=== PATIENT | female | born 1990 | race Caucasian/White ===

== ENCOUNTER → 2022-01-12 | Outpatient (CLI) | payer MEDICAID ==
[~2022-01-12] MED LIST: CEFD300C3 PO; CPR500T PO; METR500T PO; NAPR-243 PO; TRM50T PO
--- NOTE | 2022-01-12 14:07 | Diagnostic Imaging Report ---
INDICATION: Routine care. TECHNIQUE: Multiple real-time grayscale images were obtained over the gravid uterus. COMPARISON: None. FINDINGS: There is a single live intrauterine gestation in cephalic presentation. The cervix measures 5.2 cm in length. There is no funneling or endocervical fluid. The placenta is posterior without evidence of previa. The cerebellum and cisterna magna are seen. The lateral ventricle is seen. The stomach is seen. A four-chamber heart is seen. The kidneys are seen. The cord insertion is seen. The bladder is seen. A three-vessel cord is demonstrated with two umbilical arteries. The profile is seen. The upper and lower spine are seen. Bilateral lower extremities are partially seen. The left ventricular outflow tract is seen. The right ventricular outflow tract is seen. The amniotic fluid index measures 13.5 cm. The heart rate measures 149 BPM. Biometrical measurements are as follows: Biparietal 4.71 cm, age 20 weeks 2 days. Head circumference 17.64 cm, age 20 weeks 1 days. Abdominal circumference 14.76 cm, age 20 weeks 1 days. Femur length 3.45 cm, age 21 weeks 0 days. Sonographic estimate age: 20 weeks 3 days. Sonographic estimated date of delivery: 05/29/2022. Estimated Weight: 350 gm (+/- 51 gm). LMP percentile: 88%. heart rate: 149 beats per minute. number: 1 of 1. IMPRESSION: 1. Single live intrauterine gestation measuring at 20 weeks and 3 days which is within range of the clinical dates. 2. Anatomic survey. No abnormalities are seen. Dictated by: Dictated on workstation # [id number]
== END ==
LOC: RAD 11:51
PROVIDERS: ATTEND Obstetrics & Gynecology
DX: Z34.02 Encounter for supervision of normal first pregnancy, second trimester (principal); Z3A.20 20 weeks gestation of pregnancy
CPT/HCPCS: 76805

== ENCOUNTER 2022-05-18 12:41 | Outpatient (CLI) | payer BC, MEDICAID ==
[~2022-05-18] VITALS: Ht 157.5 cm; Wt 85.1 kg
[2022-05-18 13:00] VITALS: BP 134/89
[2022-05-18 13:08] LABS: BILIRUBIN,URINE NEGATIVE (NEGATIVE); CLARITY,URINE CLEAR; COLOR,URINE YELLOW; GLUCOSE, URINE (UA) NEGATIVE (NEGATIVE); KETONES,URINE NEGATIVE (NEGATIVE); LEUKOCYTE ESTERASE ,URINE NEGATIVE (NEGATIVE); NITRITE,URINE NEGATIVE (NEGATIVE); PROTEIN,URINE TRACE (NEGATIVE)
[2022-05-18 13:15] VITALS: BP 146/97
[2022-05-18 13:19] LABS: BACTERIA,URINE MODERATE /HPF; RBC,URINE RARE /HPF; SQUAMOUS EPITHELIAL CELL,UR 0-2 /HPF; WBC,URINE 0-2 /HPF
[2022-05-18 13:20] LABS: AMORPHOUS SEDIMENT,UR FEW AMOR PHOSPHATE /LPF; HYALINE CASTS, URINE RARE /LPF
[2022-05-18] MEDS ORDERED: PNV-9 PO (13:20)
[2022-05-18] MEDS ORDERED: DOXY25TA56 PO (13:20)
[2022-05-18] MEDS ORDERED: B6/F1TAB PO (13:20)
[2022-05-18 13:30] VITALS: BP 132/81
[2022-05-18 13:45] VITALS: BP 130/79
--- NOTE | 2022-05-21 08:26 | Physician Query-Final Dx ---
Clinic Account Progress/Dx Physician Query: Please give diagnosis Please include # weeks gestation Date of Service May 18, 2022 at 12:41 ,FebMay 21, 2022 08:25
== END 2022-05-18 13:59 | disposition home or self-care (01) ==
LOC: WSo 12:41 → LDRP 12:41 → WSo 13:59
PROVIDERS: ATTEND Obstetrics & Gynecology
DX: O42.92 Full-term premature rupture of membranes, unspecified as to length of time between rupture and onset of labor (principal); Z3A.38 38 weeks gestation of pregnancy
CPT/HCPCS: 81000; 87088; 99213

== ENCOUNTER 2022-05-18 21:41 | Inpatient (IN) | payer BC, MEDICAID ==
[~2022-05-18] VITALS: Ht 157.5 cm; Wt 85.1 kg
[2022-05-18] VITALS (7 sets, daily range): BP systolic 130–142; BP diastolic 75–86
[~2022-05-18 21:41] MED LIST changes: +B6/F1TAB PO; +DOXY25TA56 PO; +PNV-9 PO
[2022-05-18 22:06] LABS: BILIRUBIN,URINE NEGATIVE (NEGATIVE); CLARITY,URINE CLEAR; COLOR,URINE YELLOW; GLUCOSE, URINE (UA) NEGATIVE (NEGATIVE); KETONES,URINE NEGATIVE (NEGATIVE); LEUKOCYTE ESTERASE ,URINE NEGATIVE (NEGATIVE); NITRITE,URINE NEGATIVE (NEGATIVE); PROTEIN,URINE TRACE (NEGATIVE)
[2022-05-18 22:30] LABS: BACTERIA,URINE MODERATE /HPF; RBC,URINE RARE /HPF
[2022-05-18 22:32] LABS: YEAST,URINE RARE /HPF
[2022-05-18] MEDS ORDERED: D5 LR IV SOLUTION 1,000 ML IV ONE (22:50)
[2022-05-18] MEDS ORDERED: BUTORPHANOL INJ 2 MG/ML (STADOL) VIAL IV PRN (23:00)
[2022-05-18] MEDS ORDERED: OXYTOCIN PRE-MIX DRIP 500 ML IV SCH (23:00)
[2022-05-18] MEDS ORDERED: MINERAL OIL 30 ML UDC TOP PRN (23:00)
[2022-05-18] MEDS: D5 LR IV SOLUTION 1,000 ML IV SCH (23:06)
[2022-05-18 23:12] LABS: BASOPHILS # (AUTO) 0.1 10^3/uL (0.0-0.1); BASOPHILS % (AUTO) 0 % (0-10); EOSINOPHILS # (AUTO) 0.2 10^3/uL (0.0-0.3); EOSINOPHILS % (AUTO) 1 % (0-10); HEMATOCRIT 39 % (35-52); HEMOGLOBIN 13.4 g/dL (11.5-16.0); LYMPHOCYTES % (AUTO) 15 % (12-44); MEAN CORPUSCULAR HEMOGLOBIN 31 pg (25-34); MEAN CORPUSCULAR HGB CONC 35 g/dL (32-36); MEAN CORPUSCULAR VOLUME 88 fL (80-99); MEAN PLATELET VOLUME 10.6 fL (9.0-12.2); MONOCYTES # (AUTO) 1.6 10^3/uL (0.0-1.0); MONOCYTES % (AUTO) 8 % (0-12); NEUTROPHILS # (AUTO) 14.2 10^3/uL (1.8-7.8); NEUTROPHILS % (AUTO) 73 % (42-75); PLATELET COUNT 268 10^3/uL (130-400); WHITE BLOOD COUNT 19.4 10^3/uL (4.3-11.0)
[2022-05-19] VITALS (136 sets, daily range): BP systolic 109–161; BP diastolic 55–97
[2022-05-19] MEDS ORDERED: fentaNYL 2 mcg/ml BUPIVA 0.125 100 ML ONE (01:18)
[2022-05-19] MEDS ORDERED: LACTATED RINGERS 1,000 ML IV ONE (01:30)
[2022-05-19] MEDS ORDERED: fentaNYL INJ 100 MCG/2 ML AMP ONE ×3 (01:47→21:49)
[2022-05-19] MEDS ORDERED: LIDOCAINE PF 2% 5 ML (XYLOCAINE) VIAL ONE ×3 (01:47→22:11)
[2022-05-19] MEDS: fentaNYL 2 mcg/ml BUPIVA 0.125 100 ML EPI SCH ×3 (02:12→16:26)
[2022-05-19] MEDS ORDERED: ONDANSETRON 4 MG/2 ML (SDV) Z0FRAN IV PRN (02:30)
[2022-05-19] MEDS ORDERED: NALOXONE 0.4 MG/ML 1 ML (NARCAN) VIAL IV PRN ×3 (02:30→23:00)
[2022-05-19] MEDS ORDERED: LACTATED RINGERS 1,000 ML IV SCH (02:30)
[2022-05-19] MEDS ORDERED: diphenhydrAMINE 50 MG/ML INJ (BENADRYL) IV PRN (02:30)
[2022-05-19] MEDS ORDERED: METOCLOPRAMIDE INJ 10 MG/2 ML (REGLAN) IV PRN (02:30)
[2022-05-19] MEDS: CATHETER FLUSH 10 ML SYR IV SCH ×3 (06:38→22:00)
[2022-05-19] MEDS: D5 LR IV SOLUTION 1,000 ML IV SCH ×3 (06:56→23:00)
--- NOTE | 2022-05-19 08:24 | OB Triage Report ---
Standard Progress Note Progress Notes/Assess & Plan Date Seen by a Provider: May 18, 2022 Time Seen by a Provider: 13:00 Expected Date of Delivery: Jun 01, 2022 Gestational Age in Weeks: 38 Gestational Age in Days: 0 LMP/ANA MARÍA Comment: See above Progress/Assessment & Plan @ 38 0/7 weeks presented to L&D 05/18/22 with concerns about possible SROM, no evidence of such per RN evaluation, hx more consistent with leakage of urine upon standing. Cx 1-2 cm per L&D RN, Category I FHR tracing with irregular and mild contractions. VSS. Patient released to home with routine labor precautions. Final Diagnosis 38 weeks No SROM Not in Labor RUIZ GREWAL DO May 19, 2022 08:24
--- NOTE | 2022-05-19 08:30 | History & Physical-OB ---
OB - Chief Complaint & HPI Date/Time Date of Admission: Date of Admission: May 18, 2022 at 22:35 Date seen by a Provider: May 19, 2022 Time Seen by a Provider: 07:50 Chief Complaint/History OB-Reason for Admission/Chief: Rupture of Membranes Hx : 1 Hx Para: 0 Expected Date of Delivery: Jun 01, 2022 Gestational Age in Weeks: 38 Gestational Age in Days: 1 Other reason for admission: 38 weeks SROM Labor History of Labs LABS: MBT B POS PNAS NEG VDRL NR HBSAG NR HIV NR GC/CT NEG X 2 RUBELLA IMMUNE TSH NORMAL HCV NR MSAFP/MULTIPLE MARKER NEG 1 HR GTT 99 GBS NEG Other EDC 06/01/22 @ 38 03/03 weeks admitted late last night with laboratory confirmed SROM. Patient reports SROM @ 1930 hours, noted to be grover mild contractions q2-6 minutes spontaneously, with cx 2 cm dilated per RN exam. Admitted for delivery. PNC: uncomplicated PMH: Neg PSH: Neg SHx: Negative for smoking/ETOH/Rx/STI/Genital HSV Meds: PNV Allergy: Diflucan...swelling and rash ROS Negative for all major systems (CV, Resp, GI/, Skin, Endocrin, NM/MS) Allergies and Home Medications Allergies Coded Allergies: fluconazole (Unverified Allergy, Unknown, "SWELL UP AND GET ALL ITCHY", 01/12/22) Patient Home Medication List Home Medication List Reviewed: Yes B6/FA/B12/Co Q10/Herb No.225 (Healthy Heart Complex Tablet) 100-0.8MG Tablet, 1 EACH PO, (Reported) Entered as Reported by: AKILAH CASTANEDA on 05/18/221319 Last Action: Reviewed Doxylamine Succinate (Unisom) 25 Mg Tablet, 25 MG PO, (Reported) Entered as Reported by: AKILAH CASTANEDA on 05/18/221319 Last Action: Reviewed Pnv 119/Iron Fum/Folic Acid ( 19 Tablet) 29 Mg Iron-1 Mg Tablet, 1 EACH PO, (Reported) Entered as Reported by: AKILAH CASTANEDA on 05/18/221319 Last Action: Reviewed OB - History Hx of Present Care: Yes Obstetrical Complications: None Medical Complications: None Patient Past Medical History See above Social History/Family History 2nd Hand Smoke Exposure: No Immunizations Influenza Vaccine Up-to-Date: No; Not Current OB - Admission Exam Physical Exam Vitals: Vital Signs 05/19/22 05/19/22 05/19/22 06:15 06:45 07:00 Temp 36.3 Pulse 85 Resp 18 B/P (MAP) 127/65 (85) Pulse Ox 99 O2 Delivery Room Air HEENT: Moist Membranes Heart: Rhythm Normal Lungs: Clear Abdomen: Gravid Extremities: Normal Reflexes: Normal Cervical Dilatation: 4cm Effacement: 100% Station: -3 Membranes: Ruptured Amniotic Fluid: Clear Heart Rate: 130's Accelerations: Accelerations Present Decelerations: No Decelerations Short Term Variability: Present Half-Way Variability: Average (6-25) Contractions on Admission: < 5 Minutes Apart Date/Time Contractions Began;: 05/18/22 @ 1930 Frequency of Contractions: q2-6 minutes Intensity: Mild Labs Laboratory Tests Test 05/18/22 21:50 05/18/22 22:05 05/18/22 22:55 Range/Units Urine Color YELLOW Urine Clarity CLEAR Urine pH 6.0 5-9 Urine Specific [place] 1.025 H 1.016-1.022 Urine Protein TRACE H NEGATIVE Urine Glucose (UA) NEGATIVE NEGATIVE Urine Ketones NEGATIVE NEGATIVE Urine Nitrite NEGATIVE NEGATIVE Urine Bilirubin NEGATIVE NEGATIVE Urine Urobilinogen 0.2 < = 1.0 MG/DL Urine Leukocyte Esterase NEGATIVE NEGATIVE Urine RBC (Auto) TRACE-I H NEGATIVE Urine RBC RARE /HPF Urine WBC 2-5 /HPF Urine Squamous Epithelial Cells 10-25 H /HPF Urine Crystals NONE /LPF Urine Bacteria MODERATE H /HPF Urine Casts NONE /LPF Urine Mucus MODERATE H /LPF Urine Yeast RARE /HPF Urine Culture Indicated YES Membranes Rupture POSITIVE White Blood Count 19.4 H 4.3-11.0 10^3/uL Red Blood Count 4.37 3.80-5.11 10^6/uL Hemoglobin 13.4 11.5-16.0 g/dL Hematocrit 39 35-52 % Mean Corpuscular Volume 88 80-99 fL Mean Corpuscular Hemoglobin 31 25-34 pg Mean Corpuscular Hemoglobin Concent 35 32-36 g/dL Red Cell Distribution Width 12.7 10.0-14.5 % Platelet Count 268 130-400 10^3/uL Mean Platelet Volume 10.6 9.0-12.2 fL Immature Granulocyte % (Auto) 2 % Neutrophils (%) (Auto) 73 42-75 % Lymphocytes (%) (Auto) 15 12-44 % Monocytes (%) (Auto) 8 0-12 % Eosinophils (%) (Auto) 1 0-10 % Basophils (%) (Auto) 0 0-10 % Neutrophils # (Auto) 14.2 H 1.8-7.8 10^3/uL Lymphocytes # (Auto) 3.0 1.0-4.0 10^3/uL Monocytes # (Auto) 1.6 H 0.0-1.0 10^3/uL Eosinophils # (Auto) 0.2 0.0-0.3 10^3/uL Basophils # (Auto) 0.1 0.0-0.1 10^3/uL Immature Granulocyte # (Auto) 0.3 H 0.0-0.1 10^3/uL OB - Assessment/Plan/Diagnosis Assessment Assessment: rupture of membranes Admission Dx 38 weeks SROM (spontaneous rupture of membranes) Labor, early Admission Status: Inpatient Order (span 2 midnights) Reason for Inpatient Admission: 38 weeks SROM (spontaneous rupture of membranes) labor, early Plan Plan: Other (Pitocin augmentation, epidural at patient request) Other Plan As above. GBS negative RUIZ GREWAL DO May 19, 2022 08:30
--- NOTE | 2022-05-19 13:14 | Labor Progress Note ---
Labor Progress Note Labor Progress Note Date Seen by Provider: May 19, 2022 Time Seen by Provider: 13:00 Subjective: Pt denies complaints. Functional epidural and elizalde. Category I FHR tracing with baseline 130 bpm, moderate variability, +accels, no decels, contractions on 24 mIU Pitocin q2-3 minutes. Measuring less than <180 MVUs in part due to difficulties zeroing IUPC, but patient continues to make cervical change. Objective: (Can we insert 24 hour vitals here?) Cervical exam: /-2 (1300 hours by my exam) Assessment/Plan: Sue Soto is a (31 /Para 1 / 0,Gestational Age (wks)38 1/7 weeks undergoing augmentation of labor and now in active phase as of 1300 hours by my exam /2. Continue present care. Will re-check cervix in 4 hours, sooner prn. Patient understands condition and no questions voiced at this time. continue present care. Vitals - Labs Vital Signs - I&O Vital Signs Date Time Temp Pulse Resp B/P (MAP) Pulse Ox O2 Delivery O2 Flow Rate FiO2 05/19/22 07:00 18 Room Air 05/19/22 06:45 85 18 127/65 (85) Room Air 05/19/22 06:30 93 18 134/64 (87) Room Air 05/19/22 06:15 36.3 92 18 134/76 (95) 99 Room Air 05/19/22 06:00 99 18 137/84 (101) 99 Room Air 05/19/22 05:45 101 18 135/63 (87) 99 Room Air 05/19/22 05:40 102 18 128/73 (91) 99 Room Air 05/19/22 05:35 88 18 113/56 (75) 99 Room Air 05/19/22 05:30 93 18 120/59 (79) 99 Room Air 05/19/22 05:25 88 18 116/59 (78) 98 Room Air 05/19/22 05:20 87 18 126/60 (82) 98 Room Air 05/19/22 05:15 91 18 125/71 (89) 98 Room Air 05/19/22 05:00 85 18 110/55 (73) 98 Room Air 05/19/22 04:45 84 18 119/70 (86) 99 Room Air 05/19/22 04:30 73 18 129/75 (93) 97 Room Air 05/19/22 04:15 78 18 127/75 (92) 98 Room Air 05/19/22 04:00 83 18 123/67 (85) 97 Room Air 05/19/22 03:45 36.6 86 18 129/73 (91) 98 Room Air 05/19/22 03:30 88 18 123/65 (84) 97 Room Air 05/19/22 03:15 81 18 126/69 (88) 98 Room Air 05/19/22 03:00 78 18 125/65 (85) 98 Room Air 05/19/22 02:55 86 18 124/65 (84) 99 Room Air 05/19/22 02:50 87 18 130/72 (91) 97 Room Air 05/19/22 02:45 85 18 128/72 (90) 99 Room Air 05/19/22 02:40 90 18 131/71 (91) 98 Room Air 05/19/22 02:35 80 18 131/73 (92) 97 Room Air 05/19/22 02:30 90 18 128/63 (84) 97 Room Air 05/19/22 02:25 90 18 131/64 (86) 97 Room Air 05/19/22 02:20 91 18 137/76 (96) 97 Room Air 05/19/22 02:15 90 18 142/72 (95) 97 Room Air 05/19/22 02:10 82 18 136/75 (95) 99 Room Air 05/19/22 02:05 97 18 144/87 (106) 100 Room Air 05/19/22 01:59 99 18 153/85 (107) 99 Room Air 05/19/22 01:55 112 18 160/91 (114) 99 Room Air 05/19/22 01:45 88 18 135/76 (95) Room Air 05/19/22 01:30 106 18 135/68 (90) Room Air 05/19/22 01:15 96 18 128/74 (92) Room Air 05/19/22 01:00 88 18 129/68 (88) Room Air 05/19/22 00:45 105 18 141/88 (105) Room Air 05/19/22 00:30 101 18 125/83 (97) Room Air 05/19/22 00:15 36.4 93 18 136/79 (98) Room Air 05/19/22 00:00 97 18 131/82 (98) Room Air 05/18/22 23:45 101 18 133/80 (97) Room Air 05/18/22 23:40 99 18 133/79 (97) Room Air 05/18/22 23:25 93 18 132/76 (94) Room Air 05/18/22 23:10 97 18 136/80 (98) Room Air 05/18/22 22:21 100 18 130/77 (94) Room Air 05/18/22 22:11 95 18 130/75 (93) Room Air 05/18/22 22:01 36.7 109 18 142/86 (104) 100 Room Air 05/18/22 22:01 36.7 109 18 100 Room Air I & O 05/19/22 07:00 Intake Total 1000 ml Balance 1000 ml Labs Laboratory Tests 05/18/22 21:50: Urine Color YELLOW, Urine Clarity CLEAR, Urine pH 6.0, Urine Specific [place] 1.025H, Urine Protein TRACEH, Urine Glucose (UA) NEGATIVE, Urine Ketones NEGATIVE, Urine Nitrite NEGATIVE, Urine Bilirubin NEGATIVE, Urine Urobilinogen 0.2, Urine Leukocyte Esterase NEGATIVE, Urine RBC (Auto) TRACE-IH, Urine RBC RA RE, Urine WBC 2-5, Urine Squamous Epithelial Cells 10-25H, Urine Crystals NONE, Urine Bacteria MODERATEH, Urine Casts NONE, Urine Mucus MODERATEH, Urine Yeast RARE, Urine Culture Indicated YES 05/18/22 22:05: Membranes Rupture POSITIVE 05/18/22 22:55: White Blood Count 19.4H, Red Blood Count 4.37, Hemoglobin 13.4, Hematocrit 39, Mean Corpuscular Volume 88, Mean Corpuscular Hemoglobin 31, Mean Corpuscular Hemoglobin Concent 35, Red Cell Distribution Width 12.7, Platelet Count 268, Mean Platelet Volume 10.6, Immature Granulocyte % (Auto) 2, Neutrophils (%) (Auto) 73, Lymphocytes (%) (Auto) 15, Monocytes (%) (Auto) 8, Eosinophils (%) (Auto) 1, Basophils (%) (Auto) 0, Neutrophils # (Auto) 14.2H, Lymphocytes # (Auto) 3.0, Monocytes # (Auto) 1.6H, Eosinophils # (Auto) 0.2, Basophils # (Auto) 0.1, Immature Granulocyte # (Auto) 0.3H RUIZ GREWAL DO May 19, 2022 13:14
[2022-05-19] MEDS ORDERED: ceFAZolin INJECTION 2,000 MG ONE (20:36)
[2022-05-19] MEDS ORDERED: AZITHROMYCIN INJECTION 500 MG/5 ML VIAL ONE (20:36)
[2022-05-19] MEDS ORDERED: NS (IVPB) 50 ML ONE (20:36)
[2022-05-19] MEDS ORDERED: CITRIC ACID/SOB CIT (BICITRA) 30 ML UDC ONE (20:36)
[2022-05-19] MEDS ORDERED: FAMOTIDINE 20MG/2ML IV (PEPCID) ONE (20:36)
[2022-05-19] MEDS ORDERED: NS (IVPB) 250 ML ONE (20:43)
[2022-05-19] MEDS ORDERED: ceFAZolin INJECTION 2,000 MG in NS (IVPB) 50 ML IV ONE (20:45)
[2022-05-19] MEDS ORDERED: AZITHROMYCIN INJECTION 500 MG in NS (IVPB) 250 ML IV ONE (20:45)
[2022-05-19] MEDS ORDERED: CITRIC ACID/SOB CIT (BICITRA) 30 ML UDC PO ONE (20:45)
[2022-05-19] MEDS ORDERED: METOCLOPRAMIDE INJ 10 MG/2 ML (REGLAN) IV ONE (20:45)
[2022-05-19] MEDS ORDERED: LACTATED RINGERS 1,000 ML IV PRN (20:45)
[2022-05-19] MEDS ORDERED: FAMOTIDINE 20MG/2ML IV (PEPCID) IV ONE (20:45)
[2022-05-19] MEDS: LACTATED RINGERS 1,000 ML IV PRN ×2 (20:55→21:35)
[2022-05-19] MEDS ORDERED: KETAMINE 50 MG/5 ML SYRINGE ONE (21:45)
[2022-05-19] MEDS ORDERED: MIDAZOLAM 2 MG/2 ML (VERSED) VIAL ONE (21:54)
[2022-05-19] MEDS ORDERED: METHYLERGONOVINE 0.2 MG/ML (METHERGINE) AMP ONE (22:01)
[2022-05-19] MEDS ORDERED: ONDANSETRON 4 MG/2 ML (SDV) Z0FRAN ONE (22:11)
[2022-05-19] MEDS ORDERED: BUPIVACAINE 0.5% 30 ML (SENSORCAINE) VIAL ONE (22:11)
[2022-05-19] MEDS ORDERED: OXYTOCIN PRE-MIX DRIP 500 ML IV ONE (22:29)
[2022-05-19] MEDS ORDERED: proPOfol 200 MG/20 ML (DIPRIVAN) VIAL IV ONE (22:30)
[2022-05-19] MEDS: KETOROLAC 30 MG/ML VIAL IV SCH (22:43)
[2022-05-19] MEDS ORDERED: KETOROLAC 30 MG/ML VIAL ONE (22:46)
[2022-05-19] MEDS ORDERED: OXYTOCIN PRE-MIX DRIP 500 ML IV SCH (23:00)
[2022-05-19] MEDS ORDERED: oxyCODONE/APAP 5/325MG (PERCOCET 5) TABLET PO PRN (23:00)
[2022-05-19] MEDS ORDERED: ONDANSETRON 4 MG/2 ML (SDV) Z0FRAN IVP PRN (23:00)
--- NOTE | 2022-05-19 23:20 | OB/GYN Operative Report ---
Operative Report Date of Procedure:May 19, 2022 Preoperative Diagnosis: 38 1/7 weeks, Failure to Progress in Labor at 8 cm Postoperative Diagnosis: SAME Name of the Procedure: Section Surgeon: Ruiz Rodriguez D.O. Project Management It Specialist Surgeon: Kana Anesthesia:Epidural Indications for Procedure: Patient with failure to progress in labor at 8 cm dilation Findings of the Procedure: Normal adnexa bilaterally, normal cord and placenta. Delivery productive of viable female born at 2155 hours with 8/9, weight 6 lbs. 14 onz. in ROT position at delivery Specimens: None Crystalloid: 1,400 ML EBL: 500 ML UO: 100 ML Drain: Quigley Complications: None Antibiotics: Ancef 2gm IV, Zithromax 500 mg IV Condition: Stable Description: The patient was counseled and consented for surgery verbally and in writing. She was taken to the OR and placed on the OR table. Normal heart rate documented with doppler. She was placed in supine position with a right hip role. A betadine vaginal prep and a duraprep abdominal prep was performed while her epidural catheter was dosed. The patient was draped. A time out was performed. Adequate anesthetic level confirmed and a Pfannenstiel skin incision was made and carried to the level of the fascia that was nicked on both sides of the midline. The fascial incision was extended laterally and upwards sharply. The fascia was taken upwards and downwards sharply. The peritoneal cavity was entered bluntly. A bladder blade was inserted, a bladder flap was created and a low transverse uterine incision was made sharply and extended laterally bluntly without difficulty. The head was delivered through the incision easily along with the rest of the with minimal fundal pressure. Nasopharyngeal suction was performed on the abdomen, the cord was clamped twice and cut between the clamps and baby was handed off to the pediatric provider. IV Pitocin rapid infusion was started. The placenta required manual extraction and was removed entirely. The uterine incision had a 2 cm extension on the left side that was incorporated into the closure of the uterine incision. The first layer of closure was done with 0-Vicryl running and locking, the second layer running only. Several figure eight stitches of 0-Vicryl were placed in the midline of the incision with good hemostasis noted. The posterior and anterior cul-de-sacs were irrigated and suctioned and noted to be dry along with the uterine incision and peritoneal edges. The uterus and adnexa were a allowed to fall back into the pelvis, and again the uterine incision was dry. The fascia was closed with a running 1 Vicryl with the first throw locked. The subcutaneous tissue was irrigated, suctioned and noted to be dry. The skin was reapproximated with running subcuticular 3-0 Monocryl followed by steri strips and a sterile dressing. All sponge, needle, and instrument counts were correct at the end of the case. The patient was transferred safely to the recovery area at the end of the case. RUIZ RODRIGUEZ DO May 19, 2022 23:19
[2022-05-20] VITALS (7 sets, daily range): BP systolic 106–129; BP diastolic 58–83
[2022-05-20] MEDS: ACETAMINOPHEN 500 MG TAB (TYLENOL) PO SCH ×4 (01:23→23:11)
[2022-05-20] MEDS: KETOROLAC 30 MG/ML VIAL IV SCH ×3 (04:33→18:19)
[2022-05-20] MEDS: METHYLERGONOVINE 0.2 MG/ML (METHERGINE) AMP IM SCH ×2 (04:33→11:09)
[2022-05-20] MEDS: CATHETER FLUSH 10 ML SYR IV SCH ×2 (04:33→14:00)
[2022-05-20 05:42] LABS: BASOPHILS # (AUTO) 0.1 10^3/uL (0.0-0.1); BASOPHILS % (AUTO) 0 % (0-10); EOSINOPHILS % (AUTO) 0 % (0-10); HEMATOCRIT 30 % (35-52); HEMOGLOBIN 10.6 g/dL (11.5-16.0); LYMPHOCYTES # (AUTO) 1.7 10^3/uL (1.0-4.0); LYMPHOCYTES % (AUTO) 6 % (12-44); MEAN CORPUSCULAR HEMOGLOBIN 31 pg (25-34); MEAN CORPUSCULAR HGB CONC 35 g/dL (32-36); MEAN CORPUSCULAR VOLUME 89 fL (80-99); MEAN PLATELET VOLUME 10.8 fL (9.0-12.2); MONOCYTES # (AUTO) 2.1 10^3/uL (0.0-1.0); MONOCYTES % (AUTO) 7 % (0-12); NEUTROPHILS # (AUTO) 26.7 10^3/uL (1.8-7.8); NEUTROPHILS % (AUTO) 86 % (42-75); PLATELET COUNT 201 10^3/uL (130-400)
[2022-05-20] MEDS ORDERED: CATHETER FLUSH 10 ML SYR IV SCH (06:00)
[2022-05-20 06:14] LABS: BAND NEUTROPHILS 2 %; LYMPHOCYTES % (MANUAL) 9 %; MONOCYTES % (MANUAL) 1 %; NEUTROPHILS % (MANUAL) 88 %; TOXIC GRANULATION/VACUOLAZATIO 1+
[2022-05-20] MEDS ORDERED: PIPERACILLIN SODIUM/TAZOBACTAM 4.5 GM in NS (IVPB) 100 ML IV NR (07:15)
[2022-05-20] MEDS: PIPERACILLIN SODIUM/TAZOBACTAM 3.375 GM in NS (IVPB) 100 ML IV SCH ×3 (07:53→21:02)
[2022-05-20] MEDS ORDERED: SIMETHICONE 80 MG (MYLICON) CHEW PO SCH (09:00)
[2022-05-20] MEDS: DOCUSATE SODIUM 100 MG (COLACE) CAP PO SCH ×2 (09:16→21:01)
--- NOTE | 2022-05-20 10:43 | Postpartum Progress Note ---
Post Op Post-operative Day #1 Subjective: Patient is without complaints. Quigley removed, has not ambulated yet, will soon. Tolerating a regular diet without nausea or vomiting. Normal lochia. Pain is well controlled with oral pain medications. No flatus yet. WBC this AM 31K, no fever. Objective: VSS/AF, see graph Physical Exam: General - Alert and oriented, no apparent distress Abdomen - Soft, appropriately tender to palpation, non-distended, fundus firm at umbilicus - 4 cm and normal post-op discomfort LCTAB CV RRR Incision - clean, dry and intact; no erythema or induration, no drainage Extremities - no edema, negative Sunday's bilaterally Assessment: Post-operative day #1 s/p Primary for Failure to progress at 7-8 cm in patient with SROM >25 hours, GBS Negative. Patient with admission WBC 19K, this AM 31K No post-op fever at this time. Patient with multiple risk factors for post-op infection (markedly elevated WBC, prolonged SROM, manual extraction of placenta at time of delivery) Given all above, I've decided to proactively and prophylactically treat patient with BSA for 24 hours to prevent post-op infection/endometritis and risks of longer ABX therapy, pelvic abscess. I have discussed the clinical rationale and plan with the patient and FOB who is in total agreement with this plan as opposed to waiting to Rx later in case of fever and more difficult infection to treat. Order placed for Zosyn 3.375 gm IV q6h for a total of 5 doses (first dose around 8AM today) Encouraged ambulation, discussed pain control with APAP, motrin, oxycodone and risks of sedation in with taking large amounts of oral narcotics (ie. more than 1 p.o. q4 hrs) and voiced understanding. Recovering well, hemodynamically stable Otherwise routine orders. Will check CBC at noon today and tomorrow at 0400 to make sure WBC trending downward appropriately Patient agrees with above recommendations/plan and no questions or concerns voiced at this time. Plan: Routine post-operative care. Encourage breast feeding. Encourage ambulation. VTE prophylaxis: SCDs. Zosyn 3.375 gm IV q6h for total of 5 doses, first dose around 8 AM today. Will sign out patient to Dr. Wells tomorrow AM Serial CBCs at noon and 4 AM tomorrow. Vitals - Labs Vital Signs - I&O Vital Signs Date Time Temp Pulse Resp B/P (MAP) Pulse Ox O2 Delivery O2 Flow Rate FiO2 05/20/22 08:12 Room Air 05/20/22 08:00 36.5 103 18 114/61 (78) 96 Room Air 05/20/22 04:33 36.8 92 18 106/65 (79) 97 Room Air 05/20/22 01:23 36.3 104 18 129/72 (91) 95 Room Air 05/20/22 00:10 36.6 100 18 122/80 (94) 96 Room Air 05/20/22 00:00 37.0 18 112/83 (93) 97 Room Air 05/19/22 23:45 37.1 18 138/68 (91) 97 Room Air 05/19/22 23:30 37.2 18 109/97 (101) 97 Room Air 05/19/22 23:15 36.9 18 134/76 (95) 96 Room Air 05/19/22 23:00 37.2 18 142/92 (109) 96 Room Air 05/19/22 21:20 115 18 121/72 (88) 99 Room Air 05/19/22 21:15 121 18 127/74 (91) 99 Room Air 05/19/22 21:00 117 18 139/70 (93) 100 Room Air 05/19/22 20:45 118 18 156/85 (108) 100 Room Air 05/19/22 20:35 112 18 142/77 (98) 100 Room Air 05/19/22 20:30 121 18 141/74 (96) 100 Room Air 05/19/22 20:25 121 18 135/88 (104) 99 Room Air 05/19/22 20:20 116 18 160/75 (103) 100 Room Air 05/19/22 20:15 101 18 150/72 (98) 99 Room Air 05/19/22 20:10 108 18 146/67 (93) 100 Room Air 05/19/22 20:05 109 18 140/87 (104) 100 Room Air 05/19/22 20:00 108 18 161/78 (105) 100 Room Air 05/19/22 19:45 106 18 128/80 (96) 100 Room Air 05/19/22 19:40 102 18 139/84 (102) 100 Room Air 05/19/22 19:35 113 18 144/87 (106) 100 Room Air 05/19/22 19:30 37.2 106 18 143/75 (97) 100 Room Air 05/19/22 19:25 117 18 150/78 (102) 100 Room Air 05/19/22 19:20 112 18 141/78 (99) 100 Room Air 05/19/22 19:15 93 18 133/78 (96) 100 Room Air 05/19/22 19:10 97 18 132/72 (92) 100 Room Air 05/19/22 19:05 92 18 133/75 (94) 100 Room Air 05/19/22 19:00 94 18 134/86 (102) 100 Room Air 05/19/22 18:55 94 18 128/76 (93) 100 Room Air 05/19/22 18:50 93 18 139/84 (102) 100 Room Air 05/19/22 18:45 91 18 136/76 (96) 100 Room Air 05/19/22 18:40 92 18 132/75 (94) 100 Room Air 05/19/22 18:35 91 18 129/76 (93) 100 Room Air 05/19/22 18:30 94 18 136/81 (99) 100 Room Air 05/19/22 18:25 96 18 134/76 (95) 100 Room Air 05/19/22 18:20 96 18 134/78 (96) 100 Room Air 05/19/22 18:15 93 18 138/86 (103) 100 Room Air 05/19/22 18:10 94 18 137/76 (96) 100 Room Air 05/19/22 18:05 94 18 133/79 (97) 100 Room Air 05/19/22 18:00 92 18 144/84 (104) 100 Room Air 05/19/22 17:45 97 18 134/93 (107) 100 Room Air 05/19/22 17:30 115 18 143/83 (103) 100 Room Air 05/19/22 17:25 96 18 132/80 (97) 100 Room Air 05/19/22 17:20 107 18 145/76 (99) 100 Room Air 05/19/22 17:15 106 18 134/84 (101) 100 Room Air 05/19/22 17:10 37.0 102 18 137/80 (99) 100 Room Air 05/19/22 16:55 101 18 139/89 (106) 100 Room Air 05/19/22 16:50 98 18 132/83 (99) 100 Room Air 05/19/22 16:40 99 18 135/75 (95) 100 Room Air 05/19/22 16:35 99 18 130/74 (92) 100 Room Air 05/19/22 16:30 95 18 132/72 (92) 100 Room Air 05/19/22 16:25 98 18 140/86 (104) 100 05/19/22 16:15 100 18 137/84 (101) 98 Room Air 05/19/22 16:00 37.0 96 18 133/83 (100) 98 Room Air 05/19/22 15:45 92 18 134/80 (98) 98 Room Air 05/19/22 15:30 93 18 130/79 (96) 98 Room Air 05/19/22 15:15 97 18 135/85 (102) 99 Room Air 05/19/22 15:00 95 18 134/78 (96) 100 Room Air 05/19/22 14:45 94 18 132/97 (109) 100 Room Air 05/19/22 14:30 94 18 134/80 (98) 100 Room Air 05/19/22 14:15 35.6 98 18 133/83 (100) 100 Room Air 05/19/22 14:00 94 18 132/82 (99) 100 Room Air 05/19/22 13:47 94 18 132/79 (96) 100 Room Air 05/19/22 13:32 93 18 135/90 (105) 100 Room Air 05/19/22 13:15 36.0 111 18 128/79 (95) 100 Room Air 05/19/22 13:00 123 18 133/76 (95) 100 Room Air 05/19/22 12:42 86 18 131/75 (93) 100 Room Air 05/19/22 12:28 80 18 125/74 (91) 99 Room Air 05/19/22 12:12 84 18 125/70 (88) 98 Room Air 05/19/22 11:58 84 18 128/74 (92) 98 Room Air 05/19/22 11:48 83 18 126/70 (88) 99 Room Air 05/19/22 11:42 86 18 138/75 (96) 100 Room Air 05/19/22 11:38 90 18 139/72 (94) 100 Room Air 05/19/22 11:32 96 18 128/76 (93) 100 Room Air 05/19/22 11:28 84 18 127/73 (91) 100 Room Air 05/19/22 11:22 86 18 128/69 (88) 100 Room Air 05/19/22 11:18 82 18 129/72 (91) 100 Room Air 05/19/22 11:13 90 18 132/70 (90) 100 Room Air 05/19/22 11:08 35.8 90 18 129/72 (91) 100 Room Air 05/19/22 11:03 95 18 124/72 (89) 100 Room Air 05/19/22 10:58 87 18 131/76 (94) 100 Room Air 05/19/22 10:52 90 18 132/74 (93) 100 Room Air 05/19/22 10:48 90 18 130/69 (89) 100 Room Air 05/19/22 10:42 88 18 134/88 (103) 100 Room Air I & O 05/20/22 07:00 Intake Total 3100 ml Output Total 800 ml Balance 2300 ml Labs Laboratory Tests 05/20/22 05:30: White Blood Count 31.0*H, Red Blood Count 3.41L, Hemoglobin 10.6#L, Hematocrit 30L, Mean Corpuscular Volume 89, Mean Corpuscular Hemoglobin 31, Mean Corpuscular Hemoglobin Concent 35, Red Cell Distribution Width 12.6, Platelet Count 201, Mean Platelet Volume 10.8, Immature Granulocyte % (Auto) 1, Neutrophils (%) (Auto) 86H, Lymphocytes (%) (Auto) 6L, Monocytes (%) (Auto) 7, Eosinophils (%) (Auto) 0, Basophils (%) (Auto) 0, Neutrophils # (Auto) 26.7H, Lymphocytes # (Auto) 1.7, Monocytes # (Auto) 2.1H, Eosinophils # (Auto) 0.0, Basophils # (Auto) 0.1, Immature Granulocyte # (Auto) 0.3H, Neutrophils % (Manual) 88, Lymphocytes % (Manual) 9, Monocytes % (Manual) 1, Band Neutrophils 2, Toxic Granulation 1+ Microbiology 05/18/22 Urine Culture - Final, Complete See Comments RUIZ GREWAL DO May 20, 2022 10:43
[2022-05-20 12:10] LABS: BASOPHILS # (AUTO) 0.1 10^3/uL (0.0-0.1); BASOPHILS % (AUTO) 0 % (0-10); EOSINOPHILS # (AUTO) 0.1 10^3/uL (0.0-0.3); EOSINOPHILS % (AUTO) 0 % (0-10); HEMATOCRIT 29 % (35-52); HEMOGLOBIN 10.1 g/dL (11.5-16.0); LYMPHOCYTES # (AUTO) 2.4 10^3/uL (1.0-4.0); LYMPHOCYTES % (AUTO) 9 % (12-44); MEAN CORPUSCULAR HEMOGLOBIN 31 pg (25-34); MEAN CORPUSCULAR HGB CONC 35 g/dL (32-36); MEAN CORPUSCULAR VOLUME 88 fL (80-99); MEAN PLATELET VOLUME 10.7 fL (9.0-12.2); MONOCYTES # (AUTO) 2.2 10^3/uL (0.0-1.0); MONOCYTES % (AUTO) 8 % (0-12); NEUTROPHILS # (AUTO) 21.8 10^3/uL (1.8-7.8); NEUTROPHILS % (AUTO) 82 % (42-75); PLATELET COUNT 191 10^3/uL (130-400); WHITE BLOOD COUNT 26.8 10^3/uL (4.3-11.0)
[2022-05-20] MEDS ORDERED: PIPERACILLIN SODIUM/TAZOBACTAM 4.5 GM in NS (IVPB) 100 ML IV SCH (13:30)
[2022-05-21] MEDS: IBUPROFEN 600 MG (MOTRIN) TAB PO SCH ×3 (00:38→14:26)
[2022-05-21 00:40] VITALS: BP 106/66
--- NOTE | 2022-05-21 02:35 | Anesthesia-Regional Post-Op ---
Regional Patient Condition Mental Status: Alert, Oriented x3 Circulation: Same as Pre-Op Headache: Absent Sensation: Full Recovery Motor Block: Absent Post Op Complications Complications None Follow Up Care/Instructions Patient Instructions None needed. Anesthesia/Patient Condition Patient is doing well, no complaints, stable vital signs, no apparent adverse anesthesia problems. No complications reported per nursing. GURPREET ORDOÑEZ CRNA May 21, 2022 02:35
[2022-05-21] MEDS: PIPERACILLIN SODIUM/TAZOBACTAM 3.375 GM in NS (IVPB) 100 ML IV SCH ×2 (03:27→10:00)
[2022-05-21 04:29] LABS: BASOPHILS # (AUTO) 0.1 10^3/uL (0.0-0.1); BASOPHILS % (AUTO) 1 % (0-10); EOSINOPHILS # (AUTO) 0.3 10^3/uL (0.0-0.3); EOSINOPHILS % (AUTO) 1 % (0-10); HEMATOCRIT 25 % (35-52); HEMOGLOBIN 8.7 g/dL (11.5-16.0); LYMPHOCYTES # (AUTO) 2.5 10^3/uL (1.0-4.0); LYMPHOCYTES % (AUTO) 11 % (12-44); MEAN CORPUSCULAR HEMOGLOBIN 31 pg (25-34); MEAN CORPUSCULAR HGB CONC 35 g/dL (32-36); MEAN CORPUSCULAR VOLUME 90 fL (80-99); MEAN PLATELET VOLUME 10.9 fL (9.0-12.2); MONOCYTES # (AUTO) 1.8 10^3/uL (0.0-1.0); MONOCYTES % (AUTO) 8 % (0-12); NEUTROPHILS # (AUTO) 17.9 10^3/uL (1.8-7.8); NEUTROPHILS % (AUTO) 78 % (42-75); PLATELET COUNT 171 10^3/uL (130-400); WHITE BLOOD COUNT 22.9 10^3/uL (4.3-11.0)
[2022-05-21 06:45] VITALS: BP 114/74
[2022-05-21] MEDS ORDERED: FERR-74 PO (06:56)
[2022-05-21] MEDS ORDERED: IBUP-1773 PO (06:56)
[2022-05-21] MEDS ORDERED: ACET-2267 PO (06:56)
--- NOTE | 2022-05-21 07:02 | Short Stay Summary ---
Discharge Summary Hospital Course Was the Problem List Reviewed?: Yes Final Diagnosis: SROM, Labor, Failure to Progress, Postpa Hospital Course Date of Admission: May 18, 2022 at 22:35 Admission Diagnosis : Family Physician/Provider: No,Local Physician Date of Discharge: 05/21/22 Discharge Diagnosis: Term , SROM, Labor, Failure to Progress, Post- Hospital Course: Patient underwent evening of 05/19/22 for failure to progress at 7-8 cm dilation, delivered viable infant 6 lbs 14 onz. Elevated WBC 31K post-op, with prolonged SROM >25 hours and manual extraction of placenta at , placed on IV antibiotics for 24 hours due to risk factors, afebrile throughout, WBC now 22K, patient doing very well. Labs and Pending Lab Test: Laboratory Tests 05/20/22 12:03: White Blood Count 26.8H, Red Blood Count 3.30L, Hemoglobin 10.1L, Hematocrit 29L , Mean Corpuscular Volume 88, Mean Corpuscular Hemoglobin 31, Mean Corpuscular Hemoglobin Concent 35, Red Cell Distribution Width 12.8, Platelet Count 191, Mean Platelet Volume 10.7, Immature Granulocyte % (Auto) 1, Neutrophils (%) (Auto) 82H, Lymphocytes (%) (Auto) 9L, Monocytes (%) (Auto) 8, Eosinophils (%) (Auto) 0, Basophils (%) (Auto) 0, Neutrophils # (Auto) 21.8H, Lymphocytes # (Auto) 2.4, Monocytes # (Auto) 2.2H, Eosinophils # (Auto) 0.1, Basophils # (Auto) 0.1, Immature Granulocyte # (Auto) 0.3H 05/21/22 04:22: White Blood Count 22.9H, Red Blood Count 2.79L, Hemoglobin 8.7L, Hematocrit 25L, Mean Corpuscular Volume 90, Mean Corpuscular Hemoglobin 31, Mean Corpuscular Hemoglobin Concent 35, Red Cell Distribution Width 13.0, Platelet Count 171, Mean Platelet Volume 10.9, Immature Granulocyte % (Auto) 1, Neutrophils (%) (Auto) 78H, Lymphocytes (%) (Auto) 11L, Monocytes (%) (Auto) 8, Eosinophils (%) (Auto) 1, Basophils (%) (Auto) 1, Neutrophils # (Auto) 17.9H, Lymphocytes # (Auto) 2.5, Monocytes # (Auto) 1.8H, Eosinophils # (Auto) 0.3, Basophils # (Auto) 0.1, Immature Granulocyte # (Auto) 0.2H Microbiology 05/18/22 Urine Culture - Final, Complete See Comments Home Meds Active Reported Healthy Heart Complex Tablet (B6/FA/B12/Co Q10/Herb No.225) 100-0.8MG Tablet 1 Each PO Unisom (Doxylamine Succinate) 25 Mg Tablet 25 Mg PO 19 Tablet (Pnv 119/Iron Fum/Folic Acid) 29 Mg Iron-1 Mg Tablet 1 Each PO Assessment/Pt Instructions No strenuous activity or sex x 6 weeks, return for incisional redness/temp/pain/foul drainage. Follow up with Dr. Wells in 1 week for incision pain. Discharge Instructions Discharge Diet: Regular Diet Activity as Tolerated: Yes Discharge Physical Examination General Appearance: Alert, Oriented X3, Cooperative, No Acute Distress HEENT: Mucous Memb Moist/[place] Respiratory: Clear to Auscultation Cardiovascular: Regular Rate Abdominal: No Tenderness Extremities: No Clubbing Skin: No Rashes Psych/Mental Status: Mental Status NL Allergies: Coded Allergies: fluconazole (Unverified Allergy, Unknown, "SWELL UP AND GET ALL ITCHY", 01/12/22) Discharge Summary Date of Admission May 18, 2022 at 22:35 Date of Discharge 05/21/22 Discharge Date: May 21, 2022 Admission Diagnosis Discharge home after 1200 hours today. Follow up in [address] Wells for incision check, call for appointment. RUIZ GREWAL DO May 21, 2022 07:02
[2022-05-21 09:55] VITALS: BP 107/57
[2022-05-21] MEDS: ACETAMINOPHEN 500 MG TAB (TYLENOL) PO SCH (10:07)
[2022-05-21] MEDS: DOCUSATE SODIUM 100 MG (COLACE) CAP PO SCH (10:07)
== END 2022-05-21 14:45 | disposition home or self-care (01) | DRG 788 ==
LOC: WSo 21:41 → LDRP 21:41 → WSo 22:35 → LDRP 22:35
PROVIDERS: ADMIT Obstetrics & Gynecology; ATTEND Obstetrics & Gynecology
PROC: 10D00Z1 Extraction of Products of Conception, Low, Open Approach (ICD-10-PCS; principal; 2022-05-19 21:09)
DX: O62.0 Primary inadequate contractions (principal); Z3A.38 38 weeks gestation of pregnancy; Z37.0 Single live birth
CPT/HCPCS: 36415; 81000; 84112; 85007; 85025; 85027; 86780; 86850; 86900; 86901; 87088; 94664

== ENCOUNTER 2022-12-14 23:55 | Emergency (ER) | payer OTHER, MEDICAID ==
[~2022-12-14] VITALS: Ht 160 cm; Wt 77.0 kg
[~2022-12-14 23:55] MED LIST changes: +ACET-2267 PO; +FERR-74 PO; +IBUP-1773 PO
[2022-12-15 00:50] VITALS: BP 124/78
[2022-12-15 01:18] LABS: BACTERIA,URINE MODERATE /HPF; BILIRUBIN,URINE NEGATIVE (NEGATIVE); CLARITY,URINE CLEAR; COLOR,URINE ORANGE; GLUCOSE, URINE (UA) TRACE (NEGATIVE); KETONES,URINE NEGATIVE (NEGATIVE); LEUKOCYTE ESTERASE ,URINE 1+ (NEGATIVE); NITRITE,URINE POSITIVE (NEGATIVE); PROTEIN,URINE TRACE (NEGATIVE); SQUAMOUS EPITHELIAL CELL,UR 0-2 /HPF
[2022-12-15] MEDS ORDERED: RX-NITROFURANTOIN 100 MG (MACROBID) CAP PPK#2 PO STA (01:46)
[2022-12-15] MEDS ORDERED: PHEN-640 PO (01:49)
[2022-12-15] MEDS ORDERED: NITR-65 PO (01:49)
--- NOTE | 2022-12-15 01:49 | ED GU-Female ---
General Chief Complaint: - Reproductive Stated Complaint: POSS BLADDER INFECTION Nursing Triage Note: Pt presents with c/o UTI symptoms that started approx 1 week ago. Pt states today she started having more pain in lower abdomen. Pt took AZO without much relief. She reports a history of UTI's and kidney infections. Pt is 6 mo . Allergies and Home Medications Allergies Coded Allergies: fluconazole (Unverified Allergy, Unknown, "SWELL UP AND GET ALL ITCHY", 01/12/22) Patient Home Medication List Acetaminophen (Tylenol Extra Strength) 500 Mg Tablet, 1,000 MG PO Q8H Prescribed by: Anthony Rordiguez on 05/21/22 0710 Ferrous Sulfate (Ferrous Sulfate) 325 Mg (65 Mg Iron) Tablet, 325 MG PO DAILY Prescribed by: Anthony Rodriguez on 05/21/22 0710 Ibuprofen (Ibuprofen) 600 Mg Tablet, 600 MG PO Q6H Prescribed by: Anthony Rodriguez on 05/21/22 0710 Pnv 119/Iron Fum/Folic Acid ( 19 Tablet) 29 Mg Iron-1 Mg Tablet, 1 EACH PO, (Reported) Entered as Reported by: AKILAH CASTANEDA on 05/18/22 1320 Physical Exam Vital Signs Vital Signs - First Documented 12/15/22 00:50 Temp 36.6 Pulse 88 Resp 16 B/P (MAP) 124/78 (93) Capillary Refill : Less Than 3 Seconds Height, Weight, BMI Height: '" Weight: lbs. oz. kg; 30.00 BMI Method: Progress/Results/Core Measures Suspected Sepsis SIRS Temperature: Pulse: 88 Respiratory Rate: 16 Blood Pressure 124 /78 Mean: 93 Results/Orders Lab Results Laboratory Tests Test 12/15/22 00:51 Range/Units Urine Color ORANGE Urine Clarity CLEAR Urine pH 7.0 5-9 Urine Specific [place] 1.010 L 1.016-1.022 Urine Protein TRACE H NEGATIVE Urine Glucose (UA) TRACE H NEGATIVE Urine Ketones NEGATIVE NEGATIVE Urine Nitrite POSITIVE H NEGATIVE Urine Bilirubin NEGATIVE NEGATIVE Urine Urobilinogen 1.0 < = 1.0 MG/DL Urine Leukocyte Esterase 1+ H NEGATIVE Urine RBC (Auto) TRACE H NEGATIVE Urine RBC 2-5 H /HPF Urine WBC 10-25 H /HPF Urine Squamous Epithelial Cells 0-2 /HPF Urine Crystals NONE /LPF Urine Bacteria MODERATE H /HPF Urine Casts NONE /LPF Urine Mucus NEGATIVE /LPF Urine Culture Indicated YES Urine Test NEGATIVE NEGATIVE My Orders Orders - LETICIA BRAVO DO Hcg,Qualitative Urine (12/15/22 01:02) Ua Culture If Indicated (12/15/22 01:02) Urine Culture (12/15/22 00:51) Rx-Nitrofurantoin Miller (Rx-Macrobid) (12/15/22 01:46) Vital Signs/I&O 12/15/22 00:50 Temp 36.6 Pulse 88 Resp 16 B/P (MAP) 124/78 (93) Capillary Refill : Less Than 3 Seconds Blood Pressure Mean: 93 Departure Impression Primary Impression: Urinary tract infection Disposition: HOME, SELF-CARE Condition: Stable Departure-Patient Inst. Decision time for Depature: 01:47 Referrals: NO,LOCAL PHYSICIAN (PCP) Primary Care Physician Patient Instructions: Urinary Tract Infection, Adult (DC) Add. Discharge Instructions: LOTS OF CLEAR LIQUIDS TYLENOL AND MOTRIN NEEDED FOR PAIN FOLLOW UP WITH DRKhris OF CHOICE IN 3-4 DAYS IF NO BETTER All discharge instructions reviewed with patient and/or family. Voiced understanding. Scripts Phenazopyridine HCl (Pyridium) 200 Mg Tablet 1 TAB PO TID, #15 TAB Prov: LETICIA BRAVO DO 12/15/22 Nitrofurantoin Monohyd/M-Cryst (Macrobid 100 mg Capsule) 100 Mg Capsule 1 TAB PO BID, #20 CAP Prov: LETICIA BRAVO DO 12/15/22 LETICIA BRAVO DO Dec 15, 2022 01:49
== END 2022-12-15 01:58 | disposition home or self-care (01) ==
LOC: EDUNIT# 23:55 → ER 23:58
DX: N39.0 Urinary tract infection, site not specified (principal)
CPT/HCPCS: 81000; 84703; 87077; 87088; 99283